=== PATIENT | female | born 1960 | race African-American/Black ===

== ENCOUNTER 2018-06-04 08:40 | Emergency (ER) | payer OTHER ==
[~2018-06-04] VITALS: Ht 172.7 cm; Wt 106.6 kg
[~2018-06-04 08:40] MED LIST: ADVAIR 100-501 EACH INH; ALBUTEROL SULF8.5 GM INH; ASPIRIN EC81 MG ORAL; ATENOLOL100 MG ORAL; BENADRYL50 MG ORAL; COLACE100 MG ORAL; COUMADIN7.5 MG ORAL; EPINEPHRIN0.3 MG/0.3 IM; FERROUS SULFAT325 M2 PO; HYDROCHLOROTHIA25 G1 MC; IBUPROFEN200 MG PO; IBUPROFEN600 MG ORAL; IBUPROFEN600 MG PO; LISINOPRIL40 MG ORAL; LORATADINE D PO; LORATADINE10 M2 PO; NORCO 5-325 TA1 EACH ORAL; NORETHINDRONE AC5 MG PO; OMEPRAZOLE40 M1 ORAL; PREDNISONE20 MG ORAL; PREDNISONE50 MG ORAL; VENTOLIN HFA18 GM INH
[2018-06-04] MEDS ORDERED: Solu-MEDROL 125mg Inj IVP ONE (09:15)
[2018-06-04] MEDS ORDERED: Albuterol ud Inhalation HHN ONE (09:15)
[2018-06-04] MEDS ORDERED: Lidocaine 2% Visc 15ml soln ORAL ONE (09:15)
[2018-06-04] MEDS ORDERED: Ipratropium 0.02% Inh Soln 2.5ml UD HHN ONE (09:15)
[2018-06-04] MEDS ORDERED: cefTRIAXone 1 GM in NS 55 ML IV SCH (09:15)
--- NOTE | 2018-06-04 09:22 | Emergency Room Report ---
History of Present Illness General Chief Complaint: Flu Like Symptoms Source: Patient Present Illness HPI Patient presents with 3 days of upper respiratory symptoms. This includes a sore throat and wheezing. She denies any chest pain. The throat pain is fairly severe at this time. She is able to swallow. She took TheraFlu last night. She's taken nothing today and has had fevers and chills. There is no nausea vomiting or diarrhea. She lives with a smoker. Some headache. No dysuria. No rashes, neck pain, abdominal pain, calf pain, edema. No anxiety or depression. Borderline DM. Allergies: Coded Allergies: HYDROCODONE (Unverified Allergy, Severe, rash, 03/29/14) PEANUT (Unverified Allergy, Severe, rash, 03/29/14) CODEINE (Verified Allergy, Unknown, 03/29/14) HYDROCODONE BIT (Verified Allergy, Unknown, 03/29/14) Patient History Past Medical History: see triage record Past Surgical History: other - fibroid resection Social History: Reports: smoking - second hand Social History Narrative Last Menstrual Period: none Reviewed Nursing Documentation: PMH: Agreed; PSxH: Agreed Nursing Documentation-PMH Past Medical History: No History, Except For Hx Cardiac Problems: Yes Hx Hypertension: Yes Hx Asthma: Yes Hx Diabetes: Yes - BORDERLINE Hx Cancer: No Hx Gastrointestinal Problems: No Hx Neurological Problems: No Review of Systems All Other Systems: negative except mentioned in HPI Physical Exam Vital Signs Date Time Temp Pulse Resp B/P (MAP) Pulse Ox O2 Delivery O2 Flow Rate FiO2 06/04/18 08:46 99.0 84 20 130/89 98 Room Air 99.0 Sp02 EP Interpretation: reviewed, normal General Appearance: well appearing, no apparent distress, GCS 15, other - Diaphoretic Head: normocephalic Eyes: bilateral eye normal inspection, bilateral eye PERRL ENT: moist mucus membranes, pharyngeal erythema, tonsillar exudate Neck: supple Respiratory: lungs clear, normal breath sounds, other - Increased expiratory phase Cardiovascular #1: regular rate, rhythm Cardiovascular #2: 2+ radial (R) Gastrointestinal: normal inspection, normal bowel sounds, non tender, no mass, non-distended, overweight Genitourinary: no CVA tenderness Musculoskeletal: back normal, gait/station normal, normal range of motion, no calf tenderness, Rosita's Sign negative Neurologic: alert, oriented x3, motor strength/tone normal Psychiatric: mood/affect normal Skin: warm/dry, diaphoresis - forehead Medical Decision Making Diagnostic Impression: Primary Impression: Pharyngitis Qualified Codes: J02.9 - Acute pharyngitis, unspecified Additional Impression: Bronchospasm ER Course Patient presents with upper respiratory symptoms. She is diaphoretic at this time. She also claims she has bronchospasm. Differential includes pneumonia, bronchitis, bronchospasm, COPD, acute myocardial infarction amongst others. Based on physial and VS, PE less likely. The patient will be evaluated with EKG , chest x-ray and labs. She'll be treated with some IV hydration, breathing treatment , antibiotics and also viscous lidocaine. EKG no injury. CXR clear. CBC, CMP and UA normal. Improved with breathing treatment and hydration. Patient stable for outpatient observation and treatment. Laboratory Tests Test 06/04/18 09:45 06/04/18 10:43 White Blood Count 8.1 K/UL (4.8-10.8) Red Blood Count 5.28 M/UL (4.20-5.40) Hemoglobin 14.5 G/DL (12.0-16.0) Hematocrit 44.5 % (37.0-47.0) Mean Corpuscular Volume 84 FL (80-99) Mean Corpuscular Hemoglobin 27.5 PG (27.0-31.0) Mean Corpuscular Hemoglobin Concent 32.6 G/DL (32.0-36.0) Red Cell Distribution Width 12.7 % (11.6-14.8) Platelet Count 265 K/UL (150-450) Mean Platelet Volume 6.5 FL (6.5-10.1) Neutrophils (%) (Auto) 64.5 % (45.0-75.0) Lymphocytes (%) (Auto) 21.9 % (20.0-45.0) Monocytes (%) (Auto) 11.4 % (1.0-10.0) H Eosinophils (%) (Auto) 1.1 % (0.0-3.0) Basophils (%) (Auto) 1.2 % (0.0-2.0) Sodium Level 140 MMOL/L (136-145) Potassium Level 3.7 MMOL/L (3.5-5.1) Chloride Level 106 MMOL/L (98-107) Carbon Dioxide Level 26 MMOL/L (21-32) Anion Gap 8 mmol/L (5-15) Blood Urea Nitrogen 11 mg/dL (7-18) Creatinine 0.9 MG/DL (0.55-1.30) Estimate Glomerular Filtration Rate > 60 mL/min (>60) Glucose Level 104 MG/DL (74-106) Calcium Level 9.3 MG/DL (8.5-10.1) Total Bilirubin 0.7 MG/DL (0.2-1.0) Aspartate Amino Transferase (AST) 15 U/L (15-37) Alanine Aminotransferase (ALT) 17 U/L (12-78) Alkaline Phosphatase 82 U/L (46-116) Total Protein 7.3 G/DL (6.4-8.2) Albumin 2.9 G/DL (3.4-5.0) L Globulin 4.4 g/dL Albumin/Globulin Ratio 0.7 (1.0-2.7) L Urine Color Yellow Urine Appearance Clear Urine pH 6.5 (4.5-8.0) Urine Specific Dustin 1.015 (1.005-1.035) Urine Protein Negative (NEGATIVE) Urine Glucose (UA) Negative (NEGATIVE) Urine Ketones Negative (NEGATIVE) Urine Blood 1+ (NEGATIVE) H Urine Nitrite Negative (NEGATIVE) Urine Bilirubin Negative (NEGATIVE) Urine Urobilinogen 1 MG/DL (0.0-1.0) H Urine Leukocyte Esterase Negative (NEGATIVE) Urine RBC 2-4 /HPF (0 - 2) H Urine WBC 0-2 /HPF (0 - 2) Urine Squamous Epithelial Cells Few /LPF (NONE/OCC) Urine Bacteria Occasional /HPF (NONE) Microbiology Date/Time Source Procedure Growth Status 06/04/18 09:45 Nasal Nares Influenza Types A,B Antigen (LETICIA) - Final Complete EKG Diagnostic Results Rate: normal Rhythm: NSR ST Segments: other - St inversions 2 and AVF Rhythm Strip Diag. Results EP Interpretation: yes Rhythm: NSR, no PVC's, no ectopy Chest X-Ray Diagnostic Results Chest X-Ray Diagnostic Results : Chest X-Ray Ordered: Yes # of Views/Limited/Complete: 1 View Indication: Shortness of Breath EP Interpretation: Yes Interpretation: no consolidation, no effusion, no pneumothorax Impression: No acute disease Electronically Signed by: Electronically signed by Cory Taylor MD Last Vital Signs Date Time Temp Pulse Resp B/P (MAP) Pulse Ox O2 Delivery O2 Flow Rate FiO2 06/04/18 11:43 99.1 73 18 131/83 100 Room Air 21 99.1 Status: improved Disposition: HOME, SELF-CARE Condition: Improved Scripts Acetaminophen (Tylenol) 325 Mg Tablet 650 MG ORAL Q6H PRN for Prn Pain/Headache/Temp > 101, #20 TAB 0 Refills Prov: Cory Taylor M.D. 06/04/18 Albuterol Sulfate* (ALBUTEROL SULFATE MDI*) 8.5 Gm Hfa.aer.ad 2 PUFF INH Q6H, #1 EA 0 Refills Prov: Cory Taylor M.D. 06/04/18 Dextromethorphan Hb/Doxylamine (ROBITUSSIN NIGHTTIME COUGH DM) 237 Ml Liquid 5 ML PO Q6HR, #90 ML Prov: Cory Taylor M.D. 06/04/18 Prednisone* (PREDNISONE*) 20 Mg Tablet 40 MG ORAL DAILY, #10 TAB Prov: Cory Taylor M.D. 06/04/18 Amoxicillin/Potassium Clav 500-125 Tablet* (AUGMENTIN 500-125 TABLET*) 1 Each Tablet 1 TAB ORAL THREE TIMES A DAY, #20 TAB Prov: Cory Taylor M.D. 06/04/18 Referrals: [facility],REFERRING (PCP) Cory Taylor M.D. Jun 04, 2018 09:22
[2018-06-04 09:58] LABS: BASOPHILS % (AUTO) 1.2 % (0.0-2.0); EOSINOPHILS % (AUTO) 1.1 % (0.0-3.0); HEMATOCRIT 44.5 % (37.0-47.0); HEMOGLOBIN 14.5 G/DL (12.0-16.0); LYMPHOCYTES % (AUTO) 21.9 % (20.0-45.0); MEAN CORPUSCULAR VOLUME 84 FL (80-99); MONOCYTES % (AUTO) 11.4 % (1.0-10.0); NEUTROPHILS % (AUTO) 64.5 % (45.0-75.0); PLATELET COUNT 265 K/UL (150-450); RED BLOOD COUNT 5.28 M/UL (4.20-5.40); RED CELL DISTRIBUTION WIDTH 12.7 % (11.6-14.8); WHITE BLOOD COUNT 8.1 K/UL (4.8-10.8)
[2018-06-04 10:07] LABS: ANION GAP 8 mmol/L (5-15); BLOOD UREA NITROGEN 11 mg/dL (7-18); CALCIUM 9.3 MG/DL (8.5-10.1); CARBON DIOXIDE 26 MMOL/L (21-32); CHLORIDE 106 MMOL/L (98-107); CREATININE 0.9 MG/DL (0.55-1.30); POTASSIUM 3.7 MMOL/L (3.5-5.1); SODIUM 140 MMOL/L (136-145)
[2018-06-04 10:11] LABS: ALANINE AMINOTRANSFERASE 17 U/L (12-78); ALBUMIN 2.9 G/DL (3.4-5.0); ALBUMIN/GLOBULIN RATIO 0.7 (1.0-2.7); ALKALINE PHOSPHATASE 82 U/L (46-116); ASPARTATE AMINO TRANSFERASE 15 U/L (15-37); BILIRUBIN,TOTAL 0.7 MG/DL (0.2-1.0)
--- NOTE | 2018-06-04 10:38 | Diagnostic Imaging Report ---
EXAM: XR Chest, 1 View CLINICAL HISTORY: COUGH TECHNIQUE: Frontal view of the chest. COMPARISON: Chest x-ray 01/10/17 FINDINGS: Lungs: Hypoventilatory lungs. Lungs clear. Pleural space: Unremarkable. No pneumothorax. Heart: Heart size upper limits normal. Mediastinum: Unremarkable. Bones/joints: Degenerative changes of the spine. IMPRESSION: No acute findings.
[2018-06-04 10:57] LABS: APPEARANCE,URINE CLEAR; BILIRUBIN, URINE NEGATIVE (NEGATIVE); GLUCOSE, URINE (UA) NEGATIVE (NEGATIVE); KETONES,URINE NEGATIVE (NEGATIVE); LEUKOCYTE ESTERASE ,URINE NEGATIVE (NEGATIVE); NITRITE,URINE NEGATIVE (NEGATIVE); PH,URINE 6.5 (4.5-8.0); PROTEIN,URINE NEGATIVE (NEGATIVE); UROBILINOGEN,URINE 1 MG/DL (0.0-1.0)
[2018-06-04 11:10] VITALS: BP 131/83
[2018-06-04 11:16] LABS: COLOR,URINE YELLOW
[2018-06-04] MEDS ORDERED: ALBUTEROL SULF8.5 GM INH (11:23)
[2018-06-04] MEDS ORDERED: PREDNISONE20 MG ORAL (11:23)
[2018-06-04] MEDS ORDERED: TYLENOL325 MG ORAL (11:23)
[2018-06-04] MEDS ORDERED: ROBITUSSIN NIG237 ML PO (11:23)
[2018-06-04] MEDS ORDERED: AUGMENTIN 500-1 EACH ORAL (11:23)
[2018-06-04 11:43] VITALS: BP 131/83
--- NOTE | 2018-06-06 07:59 | Cardiology Report ---
APPROVED REPORT EKG Measurement Heart [id number] Normal sinus rhythm Left axis deviation Inferior infarct, age undetermined Cannot rule out Anterior infarct, age undetermined Abnormal ECG
== END 2018-06-04 11:43 | disposition home or self-care (01) ==
LOC: EMR 08:59
DX: J02.9 Acute pharyngitis, unspecified (principal); J98.01 Acute bronchospasm; I10 Essential (primary) hypertension; J45.909 Unspecified asthma, uncomplicated; R73.03 Prediabetes; Z91.010 Allergy to peanuts; Z88.5 Allergy status to narcotic agent
CPT/HCPCS: 36415; 71045; 80053; 81003; 85025; 86710; 93005; 94640; 96361; 96365; 96366; 96375; 99284; J0696; J2930

== ENCOUNTER 2018-09-22 11:37 | Emergency (ER) | payer OTHER ==
[~2018-09-22] VITALS: Ht 172.7 cm; Wt 106.6 kg
[~2018-09-22 11:37] MED LIST changes: +AUGMENTIN 500-1 EACH ORAL; +ROBITUSSIN NIG237 ML PO; +TYLENOL325 MG ORAL
[2018-09-22 11:48] VITALS: BP 158/89
[2018-09-22] MEDS ORDERED: CEPHALEXIN500 M1 ORAL (11:51)
[2018-09-22 12:23] LABS: BASOPHILS % (AUTO) 1.6 % (0.0-2.0); EOSINOPHILS % (AUTO) 2.5 % (0.0-3.0); HEMOGLOBIN 12.5 G/DL (12.0-16.0); LYMPHOCYTES % (AUTO) 32.2 % (20.0-45.0); MEAN CORPUSCULAR VOLUME 87 FL (80-99); MONOCYTES % (AUTO) 10.2 % (1.0-10.0); NEUTROPHILS % (AUTO) 53.5 % (45.0-75.0); PLATELET COUNT 283 K/UL (150-450); RED CELL DISTRIBUTION WIDTH 14.4 % (11.6-14.8); WHITE BLOOD COUNT 4.9 K/UL (4.8-10.8)
[2018-09-22 12:30] LABS: ANION GAP 6 mmol/L (5-15); BLOOD UREA NITROGEN 10 mg/dL (7-18); CALCIUM 9.1 MG/DL (8.5-10.1); CARBON DIOXIDE 29 MMOL/L (21-32); CHLORIDE 106 MMOL/L (98-107); CREATININE 0.9 MG/DL (0.55-1.30); POTASSIUM 3.4 MMOL/L (3.5-5.1); SODIUM 140 MMOL/L (136-145)
[2018-09-22 12:35] LABS: ALANINE AMINOTRANSFERASE 23 U/L (12-78); ALBUMIN 3.3 G/DL (3.4-5.0); ALBUMIN/GLOBULIN RATIO 0.7 (1.0-2.7); ALKALINE PHOSPHATASE 110 U/L (46-116); ASPARTATE AMINO TRANSFERASE 17 U/L (15-37); BILIRUBIN,TOTAL 0.3 MG/DL (0.2-1.0)
--- NOTE | 2018-09-22 12:51 | Emergency Room Report ---
History of Present Illness General Chief Complaint: Pain Source: Patient Present Illness HPI Patient presents emergency department today complaining of left knee pain. Patient states that she had a total knee replacement about a month ago. Since that she's had intermittent worsening pain associate some swelling of left knee. She states that she saw her orthopedic surgeon was told everything was fine. But today some scapular mouth and there was evidence of pus has come out of the scapula. The left knee does appear slightly warm. No other complaints were noted. Patient denies any fever chest pain shortness breath denies nausea vomiting diarrhea chills. Symptoms noted to be moderate. Patient is able to move her knee but still has pain. No other modifying factors. No other associated signs and symptoms. No other complaints were noted. Allergies: Coded Allergies: HYDROCODONE (Unverified Allergy, Severe, rash, 03/29/14) PEANUT (Unverified Allergy, Severe, rash, 03/29/14) CODEINE (Verified Allergy, Unknown, 03/29/14) HYDROCODONE BIT (Verified Allergy, Unknown, 03/29/14) Patient History Past Medical History: DM, HTN, CAD Past Surgical History: other - Left knee total replacement Pertinent Family History: none Social History: Denies: smoking, alcohol use, drug use Reviewed Nursing Documentation: PMH: Agreed; PSxH: Agreed Nursing Documentation-PMH Past Medical History: No History, Except For Hx Cardiac Problems: Yes Hx Hypertension: Yes Hx Asthma: Yes Hx Diabetes: Yes - BORDERLINE Hx Cancer: No Hx Gastrointestinal Problems: No Hx Neurological Problems: No Review of Systems All Other Systems: negative except mentioned in HPI Physical Exam Vital Signs Date Time Temp Pulse Resp B/P (MAP) Pulse Ox O2 Delivery O2 Flow Rate FiO2 09/22/18 11:42 99.0 78 17 161/91 98 Room Air Sp02 EP Interpretation: reviewed, normal General Appearance: normal inspection, well appearing, no apparent distress, alert Head: atraumatic Eyes: bilateral eye normal inspection ENT: normal ENT inspection, hearing grossly normal, normal voice Neck: normal inspection, full range of motion, supple, no bony tend Respiratory: normal inspection, lungs clear, normal breath sounds, no respiratory distress, no retraction, no wheezing Cardiovascular #1: regular rate, rhythm, no edema Gastrointestinal: normal inspection, normal bowel sounds, non tender, soft, no guarding, no hernia Genitourinary: no CVA tenderness Musculoskeletal: swelling - Left knee, other - Small pus discharge left knee at wound consistent with stitch abscess, tender - Left knee Neurologic: normal inspection, alert, responsive, speech normal Psychiatric: normal inspection, judgement/insight normal, mood/affect normal Skin: other - Left knee pus discharge from skin Medical Decision Making Diagnostic Impression: Primary Impression: Postoperative stitch abscess ER Course Patient presents emergency department today complaining of left knee pain with some evidence of drainage. Difficult considerations include septic joint, stitch abscess, cellulitis just name a few. Patient's exam showed benign symptoms are consistent with a stitch abscess. Patient's laboratory workup was negative. Case was discussed patient's orthopedist Dr. Draper at [phone]. He recommend starting patient on Keflex and seeing the patient in office. I felt was reasonable given patient's not septic and has no evidence septic joint.Patient is advised to follow up with primary doctor in 2-3 days and return the emergency room for any worsening symptoms and as needed. Other X-Ray Diagnostic Results Other X-Ray Diagnostic Results : # of Views/Limited Vs Complete: 3 View Indication: Pain EP Interpretation: Yes Interpretation: no dislocation, no fractures, other - Knee Instrumentation in place Impression: No acute disease Electronically Signed by: Electronically signed by Mario Claudio MD Last Vital Signs Date Time Temp Pulse Resp B/P (MAP) Pulse Ox O2 Delivery O2 Flow Rate FiO2 09/22/18 11:48 99.0 74 21 158/89 100 Room Air Status: improved Disposition: HOME, SELF-CARE Condition: Stable Scripts Cephalexin* (KEFLEX*) 500 Mg Capsule 500 MG ORAL EVERY 6 HOURS for 7 Days, CAP Prov: Mario Claudio MD 09/22/18 Referrals: [facility],REFERRING (PCP) Mario Claudio MD Sep 22, 2018 12:51
--- NOTE | 2018-09-22 13:11 | Diagnostic Imaging Report ---
Indication: Knee Pain 3 views of the left knee were obtained. Findings: There is a total knee prosthesis present. There is no acute fracture, malalignment or abnormal interface lucencies identified. No definite joint effusion seen. IMPRESSION: No acute injury appreciated
[2018-09-22] MEDS ORDERED: CEPHALEXIN500 MG ORAL (13:27)
[2018-09-22 13:36] VITALS: BP 146/82
== END 2018-09-22 13:37 | disposition home or self-care (01) ==
LOC: EMR 12:05
DX: T81.41XA Infection following a procedure, superficial incisional surgical site, initial encounter (principal); Y83.8 Other surgical procedures as the cause of abnormal reaction of the patient, or of later complication, without mention of misadventure at the time of the procedure; Y92.9 Unspecified place or not applicable; Z96.652 Presence of left artificial knee joint; I10 Essential (primary) hypertension; J45.909 Unspecified asthma, uncomplicated; Z91.010 Allergy to peanuts; Z88.5 Allergy status to narcotic agent
CPT/HCPCS: 36415; 80053; 85025; 85651; 86140; 99283

== ENCOUNTER 2020-02-27 17:53 | Emergency (ER) | payer OTHER ==
[~2020-02-27] VITALS: Ht 172.7 cm; Wt 106.6 kg
[~2020-02-27 17:53] MED LIST changes: +CEPHALEXIN500 M1 ORAL; +CEPHALEXIN500 MG ORAL
[2020-02-27 18:14] VITALS: BP 136/92
[2020-02-27] MEDS ORDERED: Ketorolac 30mg Inj IM ONE (18:30)
--- NOTE | 2020-02-27 18:50 | Emergency Room Report ---
History of Present Illness General Chief Complaint: Upper Extremity Injury Source: Patient Present Illness HPI 59-year-old female with history of hypertension currently controlled with medication here complaining of right hand pain after fall earlier today. Rates the pain 7 out of 10 without radiation. Has not taken medication for symptom relief. Obvious swelling noted on the thenar side. Also range of motion of the wrist, denies any tingling numbness. Patient is neurovascularly intact. Denies head injury and all other injuries. Denies chest pain, shortness of breath, fever and chills. Patient also complains of history of arthritis and worsening right shoulder pain however denies any fall injury to the shoulder. Denies any tingling numbness. No impingement sign noted. Allergies: Coded Allergies: HYDROCODONE (Unverified Allergy, Severe, rash, 03/29/14) PEANUT (Unverified Allergy, Severe, rash, 03/29/14) CODEINE (Verified Allergy, Unknown, 03/29/14) HYDROCODONE BIT (Verified Allergy, Unknown, 03/29/14) COVID-19 Screening Contact w/high risk pt: No Experienced COVID-19 symptoms?: No COVID-19 Testing performed [employer]: No Patient History Past Medical History: see triage record Past Surgical History: none Pertinent Family History: none Immunizations: UTD Reviewed Nursing Documentation: PMH: Agreed; PSxH: Agreed Nursing Documentation-PMH Past Medical History: No History, Except For Hx Cardiac Problems: Yes Hx Hypertension: Yes Hx Asthma: Yes Hx Diabetes: Yes - BORDERLINE Hx Cancer: No Hx Gastrointestinal Problems: No Hx Neurological Problems: No Review of Systems All Other Systems: negative except mentioned in HPI Physical Exam Vital Signs Date Time Temp Pulse Resp B/P (MAP) Pulse Ox O2 Delivery O2 Flow Rate FiO2 02/27/20 18:14 98.2 93 19 136/92 100 Room Air Sp02 EP Interpretation: reviewed, normal General Appearance: no apparent distress, alert, GCS 15, non-toxic Head: normocephalic, atraumatic Eyes: bilateral eye normal inspection, bilateral eye PERRL ENT: hearing grossly normal, normal pharynx, no angioedema, normal voice Neck: full range of motion, supple/symm/no masses Respiratory: chest non-tender, lungs clear, normal breath sounds, no rhonchi, no wheezing, speaking full sentences Cardiovascular #1: regular rate, rhythm, no edema, no murmur Cardiovascular #2: 2+ radial (R), 2+ radial (L) Gastrointestinal: normal bowel sounds, non tender, soft, non-distended, no guarding, no rebound Rectal: deferred Genitourinary: no CVA tenderness Musculoskeletal: back normal, swelling - Right thenar, other - No impingement sign noted Neurologic: alert, motor strength/tone normal, oriented x3, sensory intact, responsive, speech normal Psychiatric: judgement/insight normal, memory normal, mood/affect normal, no suicidal/homicidal ideation Skin: no rash Lymphatic: no adenopathy Procedures Splinting Splinting : Consent: Verbal Location: Right hand Pre-Made Type: velcro Splint: wrist Pre-Proc Neuro Vasc Exam: normal Post-Proc Neuro Vasc Exam: normal Patient Tolerated: Well Complications: None Medical Decision Making PA Attestation All my diagnosis and treatment plans were reviewed ad discussed with my supervising physician Dr. Malave Diagnostic Impression: Primary Impression: Crushing injury of hand Additional Impression: Arthritis ER Course 59-year-old female with history of hypertension currently controlled with medication here complaining of right hand pain after fall earlier today. Rates the pain 7 out of 10 without radiation. Has not taken medication for symptom relief. Obvious swelling noted on the thenar side. Also range of motion of the wrist, denies any tingling numbness. Patient is neurovascularly intact. Denies head injury and all other injuries. Denies chest pain, shortness of breath, fever and chills. Patient also complains of history of arthritis and worsening right shoulder pain however denies any fall injury to the shoulder. Denies any tingling numbness. No impingement sign noted. Ddx considered but are not limited to: Hand sprain, hand sprain, hand fracture Vital signs: are WNL, pt. is afebrile H&PE are most consistent with : Crushing injury of hands, arthritis ORDERS: Hand x-ray, shoulder x-ray, Motrin, Tylenol ED INTERVENTIONS: Toradol, Velcro splint applied DISCHARGE: At this time pt. is stable for d/c to home. Will provide printed patient care instructions, and any necessary prescriptions. Care plan and follow up instructions have been discussed with the patient prior to discharge. Patient take medication as directed, follow-up primary care provider healthcare specialist, if worsening symptoms return to the emergency room. Other X-Ray Diagnostic Results Other X-Ray Diagnostic Results #1: X-Ray ordered: Right hand # of Views/Limited Vs Complete: 3 View Indication: Pain EP Interpretation: Yes LUCIA Xray: Interpretation reviewed, by supervising MD, and agrees with findings. Interpretation: no dislocation, no fractures Impression: No acute disease Electronically Signed by: Yossi Lincoln PA-C Other X-Ray Diagnostic Results #2: X-Ray ordered: Right shoulder # of Views/Limited Vs Complete: 2 View Indication: Pain EP Interpretation: Yes LUCIA Xray: Interpretation reviewed, by supervising MD, and agrees with findings. Interpretation: no dislocation, no soft tissue swelling, no fractures Impression: No acute disease Electronically Signed by: Yossi Lincoln PA-C Last Vital Signs Date Time Temp Pulse Resp B/P (MAP) Pulse Ox O2 Delivery O2 Flow Rate FiO2 02/27/20 18:14 98.2 93 19 136/92 (107) 100 Room Air Disposition: HOME, SELF-CARE Condition: Stable Scripts Acetaminophen* (TYLENOL EXTRA STRENGTH*) 500 Mg Tablet 500 MG ORAL Q8H PRN for Prn Headache/Temp > 101, #30 TAB 0 Refills Prov: Yossi Kumar 02/27/20 Ibuprofen* (MOTRIN*) 600 Mg Tablet 600 MG ORAL Q6H PRN for For Pain, #30 TAB 0 Refills Prov: Yossi Kumar 02/27/20 Patient Instructions: Arthritis, [id number], Hand Contusion Additional Instructions: Take medication as directed, follow-up with your primary care provider, if worsening symptom return to the emergency room. You may need to be sent to healthcare specialist. Yossi Kumar Feb 27, 2020 18:50
[2020-02-27] MEDS ORDERED: TYLENOL EXTRA500 MG ORAL (18:52)
[2020-02-27] MEDS ORDERED: IBUPROFEN600 M1 ORAL (18:52)
[2020-02-27 19:05] VITALS: BP 136/92
--- NOTE | 2020-02-28 13:12 | Diagnostic Imaging Report ---
Indication: Trauma and pain Technique: 3 views of the right shoulder Comparison: none Findings: No acute fractures. No dislocations. Joint spaces are preserved Impression: No acute process
--- NOTE | 2020-02-28 13:14 | Diagnostic Imaging Report ---
Indication: Trauma, pain Technique: 3 views right hand Comparison: none Findings: No acute fractures. No dislocations. The joint spaces are preserved. Bones are osteoporotic Impression: Negative
== END 2020-02-27 19:09 | disposition home or self-care (01) ==
LOC: EMR 18:43
DX: S67.21XA Crushing injury of right hand, initial encounter (principal); M81.0 Age-related osteoporosis without current pathological fracture; M25.511 Pain in right shoulder; W19.XXXA Unspecified fall, initial encounter; Y92.9 Unspecified place or not applicable; Z88.6 Allergy status to analgesic agent; Z91.010 Allergy to peanuts
CPT/HCPCS: 73030; 73130; 96372; J1885; Z7502; 99284